=== PATIENT | male | born 1995 | race Caucasian/White ===

== ENCOUNTER → 2017-12-18 12:50 | Outpatient (CLI) | payer BC, OTHER, SELFPAY ==
--- NOTE | 2017-12-18 12:59 | CT_ITS ---
STUDY: CT TEMPORAL BONES WITHOUT CONTRAST - ATTN: I.A.C. S REASON FOR EXAM: Male, 22 years old. Hearing loss. RADIATION DOSAGE (If Supplied By Facility): CTDIvol = ( 67.58 ) mGy, DLP = ( 650.04 ) mGycm TECHNIQUE: The patient was scanned in a multi detector CT scanner. Transaxial imaging was performed without the administration of intravenous contrast material. Sagittal and coronal images were reconstructed. Individualized dose optimization techniques were used for this CT. COMPARISON: None. FINDINGS: RIGHT TEMPORAL BONE Normal right internal auditory canal. Normal visualized ossicles and tympanic cavity. Normal right cochlea and semicircular canals. Normal vestibular aqueduct. Normal right petrous carotid artery. Normal right jugular fossa. Normal right mastoid air cells. Normal right petrous apex. LEFT TEMPORAL BONE Normal left internal auditory canal. Normal visualized ossicles and tympanic cavity. Normal left cochlea and semicircular canals. Normal vestibular aqueduct. Normal left petrous carotid artery. Normal right jugular fossa. Normal left mastoid air cells. Normal left petrous apex. CT/Orb Sella Post Fossa Ear w/o IMPRESSION: Normal unenhanced CT examination of the bilateral temporal bones (I.A.C.'s). Electronically Signed: Dmitry Lima DO at 19:24 EDT Tel [phone], Service support ,
== END ==
PROVIDERS: Family Provider Family Medicine; PCP Family Medicine; Referring Provider Otolaryngology; Visit Provider Otolaryngology
DX: H90.2 Conductive hearing loss, unspecified (principal)
CPT/HCPCS: 70480

== ENCOUNTER 2018-01-30 05:26 | Day surgery (SDC) | payer BC, OTHER, SELFPAY ==
--- NOTE | 2018-01-25 10:56 | EKG12_ITS ---
Test Reason : PRE OP Blood Pressure : / mmHG Vent. Rate : 082 BPM Atrial Rate : 082 BPM P-R Int : 148 ms QRS Dur : 096 ms QT Int : 378 ms P-R-T Axes : 063 094 044 degrees QTc Int : 441 ms Normal sinus rhythm Rightward axis Borderline ECG Confirmed by JN TRUJILLO ([id number]), desk editor SID DURAN ([id number]) on 01/29/2018 2:35:07 PM Referred By: Tai Gutierrez Confirmed By:JN TRUJILLO
[2018-01-25 11:27] VITALS: BP 114/86; PULSE 66; RESP 18; TEMP 37.4; O2SAT 97; BMI 23.3
[2018-01-25 12:07] LABS: Anion Gap 6 (5-15); BUN 14 mg/dL (7-18); BUN/Creat Ratio 16.1 RATIO (10-20); Calcium,Total 9.4 mg/dL (8.5-10.1); Chloride 105 mmol/L (98-107); Creatinine, Serum 0.87 mg/dL (0.70-1.30); EST Glomerular Filtration Rate 117 mL/min (>60); Est Glom Filt Rate - Afr Amer 142 mL/min (>60); Estimated Creatinine Clearance 125.57 ml/min; Glucose 97 mg/dL (74-106); Potassium 3.9 mmol/L (3.5-5.1); Sodium Level 141 mmol/L (136-145)
[2018-01-30 05:44] VITALS: BP 118/70; PULSE 67; RESP 14; TEMP 36.6; O2SAT 100; BMI 23.3
[2018-01-30] MEDS: Ciprofloxacin 0.3% 2.5ml Bottle 1 DRP (08:15)
[2018-01-30] MEDS: Oxymetazoline 0.05% 1 SPRAY SPRAY.BTL 15 SPRAY (08:22)
[2018-01-30] MEDS: Neomycin/Bacitracin/Polymyxin Ointment 1 APPLIC (10:13)
[2018-01-30 10:35] VITALS: BP 111/79; BP 118/70; PULSE 73; RESP 16; TEMP 36.4; O2SAT 96
--- NOTE | 2018-01-30 10:36 | DCINST_ITS ---
You will use the following diet at home:: No restrictions Call your doctor if your incision/area has: Increased Pain/ Swelling Additional Dressing/Incision Instructions:: do not get water in your right ear for 1 month Allergies/Adverse Reactions: Allergies amoxicillin [From Augmentin] Adverse Reaction (Verified 01/25/18 11:22) Vomiting clavulanic acid [From Augmentin] Adverse Reaction (Verified 01/25/18 11:22) Vomiting Medications to take at Discharge Acetaminophen [Tylenol Extra Strength] 500 - 1,000 mg PO Q6H PRN PRN 01/25/18 Albuterol IH (ProAir) [Proair Hfa (SP)Vent Pts] 1 - 2 puff INHALATION Q4H PRN PRN 01/25/18 Amoxicillin 875 mg PO BID 01/25/18 Phenylephrine HCl [Sudafed PE] 10 mg PO DAILY PRN 01/25/18 Acetaminophen/Codeine #3 [Tylenol#3] 1 tab PO Q6H PRN PRN 5 Days #20 tab 01/30/18 Ciprofloxacin [Cipro] 500 mg PO BID #14 tab 01/30/18 The following prescriptions were given: Acetaminophen/Codeine #3 [Tylenol#3] 1 tab PO Q6H PRN PRN 5 Days #20 tab PRN Reason: Pain Ciprofloxacin [Cipro] 500 mg PO BID #14 tab Primary Care Physician: Marcellus Ham MD [Primary Care Provider] - Test Results: Test results from this visit will be discussed in further detail at your follow- up appointment, if applicable. Please Follow Up With: Tai Gutierrez MD When: 1 month
[2018-01-30 10:45] VITALS: BP 114/80; BP 118/70; PULSE 70; RESP 16; O2SAT 97
[2018-01-30 10:57] VITALS: BP 118/70; BP 130/86; PULSE 94; RESP 16; TEMP 36.2; O2SAT 100
[2018-01-30 12:09] VITALS: BP 118/70; BP 124/82; PULSE 88; RESP 16; TEMP 36.5; O2SAT 99
--- NOTE | 2018-01-30 16:22 | PCM.OPRPT ---
Problem List (1) Conductive hearing loss in right ear Status: Chronic Report of Operation Date of Procedure: 01/30/18 Pre-Operative Diagnosis: 1. conductive hearing loss, right ear Post-Operative Diagnosis: 1. conductive hearing loss, right ear Surgery/Procedure Performed:: 1. tympanoplasty with partial ossicular reconstruction, right ear. 2. fascia graft Type of Anesthesia:: General Description of Procedure: on the day of the procedure, after appropriate informed consent was obtained, the patient was brought to the operating room and placed in supine position on the operating table. he was placed under general endotracheal anesthesia by the anesthesiologist. the endotracheal tube was secured, the eyes were taped. the table was rotated 90 degrees toward the surgeon. the right ear was prepped and draped in sterile fashion. the ear canal and postauricular area was injected with lidocaine/epinephrine. a speculum was placed and the binocular operating microscope was used to evaluate the ear. a large round knife was used to make an incision 5mm lateral to the annulus. using a gimmick, the middle ear space was entered and the ossicles were examined. the malleus appeared normal. however, the articulation of the incus and stapes seemed to have a gap. the stapes was mobile when gently pressured. there were numerous adhesions that were lysed. at this time, given the patient had a maximal conductive loss and otherwise a normal CT scan, it was deemed necessary to remove the incus and place a PORP dornhoffer prosthesis. when the incus was removed and examined, it appeared to have necrosis of the distal end. a 1cm postauricular incision was made with a #15 blade and the temporalis fascia was exposed. a 1 x 1 cm graft was taken with a freer and iris scizzors. this was fascia-pressed and dried. the prosthesis was placed satisfactorily placed on the stapes suprastructure and leaned against the malleus. the fascia graft was placed over the prosthesis and the tympanic membrane was laid down in its usual position. the postauricular incision was closed with 4-0 vicryl and 5-0 fast gut. gelfoam was placed lateral to the tympanic membrane and bacitracin was placed in lateral to the TM. a cotton ball was placed. the patient was awoken from general endotracheal anesthesia and sent to the PACU in stable condition.
== END 2018-01-30 12:10 | disposition home or self-care (01) ==
LOC: SDC 05:26 → AC 05:27
PROVIDERS: Family Provider Family Medicine; PCP Family Medicine; Referring Provider Otolaryngology; Visit Provider Otolaryngology
PROC: (CPT 69632; principal; 2018-01-30 07:00)
DX: H90.11 Conductive hearing loss, unilateral, right ear, with unrestricted hearing on the contralateral side (principal); J45.909 Unspecified asthma, uncomplicated
CPT/HCPCS: 69632; 36415; 80048; 93005; J7120; J2405

== ENCOUNTER → 2018-11-23 11:40 | Outpatient (CLI) | payer BC, OTHER, SELFPAY ==
--- NOTE | 2018-11-23 11:45 | RAD_ITS ---
STUDY: X-RAY - THORACIC SPINE REASON FOR EXAM: Male, 23 years old. Back pain and surgery TECHNIQUE: 3 view(s) of the thoracic spine were obtained. COMPARISON: None. FINDINGS: There is posterior fusion with transpedicular screws and rods of the thoracic spine. There is no substantial scoliosis. Normal thoracic vertebrae and endplates. Normal disc space heights. The soft tissue structures are unremarkable. RAD/Thoracic Spine 3 Views IMPRESSION: Posterior fusion with transpedicular screws and rods of the thoracic spine. Electronically Signed: Eliud Pena, at 12:15 EDT Tel , Service support ,
== END ==
PROVIDERS: Family Provider Family Medicine; PCP Family Medicine; Referring Provider Family Medicine; Visit Provider Family Medicine
DX: M54.9 Dorsalgia, unspecified (principal)
CPT/HCPCS: 72072

== ENCOUNTER 2019-01-30 13:00 | Outpatient (RCR) | payer BC, OTHER, SELFPAY ==
--- NOTE | 2018-11-30 08:27 | HP.PTEVAL_ITS ---
Patient's Visit Information BEN TALBERT is a 23 year old M referred to Physical Therapy by Marcellus Ham MD with a diagnosis of LOW BACK PAIN. Date of Evaluation: 11/30/18 Physical Therapist: Paulie Estrella, PT, Cert MDT, OCS - Visit Plan Frequency: 2x /Week Duration: 4 Weeks Plan: PT INTERVENTIONS DLS,POSTURAL EX'S,LE FLEXABLITY ,STRENGTHENING,MODALTIES NEEDED - Subjective Findings: This 23 y/o male presents presnets to physical therapy with low back pain. Patient has LBP since childhood. Patient has had sciolios since childhood.Also had spinals fusion for scoliosis 6 years ago and 1st surgery 6 y ears olds.Patient location pain thoracic -lumbar stabbing sharp pain. Aggravating factors sitting, ,bending,lifting, standing. Allevating factors running ,walking. Patient symptoms affrcts sleeping. Patient denies parathesia/tingliong. Bowel/bladder -. Coughingsneezing -. Patient has no trauma. Patient symtoms affects ADLS and housework and school demnads. Patient symptoms affects QOL.Seen Dr did x-rays -. SOCAIL: College student. Single lives with parents - Pain Bilateral Buttocks Pain Intensity (Out of 10): 6 Pain Intensity Range: 10 Comment: T-L - Objective POSTURE: foward posture rounded shoulders ,right thoracic rotation scapular winged,left leg shorter than right. PALPATION: tender posterior spine region. NEURO: denies parathesia/tingling,reflexes L3-4,L4-5,L5-S1 2/3. SYMMTRIES: assymtries pelvis .left leg shorter. FLEXABLITY: hams severe tight. LUMBAR ROM: flexion flexion mod /severe loss,etension mod /severe loss,side glides mod loss. GAIT: reciprocal pattern scoliosis. MUSCULAR ENDURANCE : poor unable - Goals Goal 1:: Improve posture/body mechanics for ADL'S and sitting. Goal Time Frame: 4-6 Weeks Goal 2:: Independant with HEP Goal Time Frame: 4-6 Weeks Goal 3:: Patient to decrease thoracic and lumbar pain by 50% or> to improve function. Goal Time Frame: 4-6 Weeks Goal 4:: Patient to improve flexablity LE to improve function. Goal Time Frame: 4-6 Weeks Goal 5:: Patient to improve lumbar ROM for function of recovery Goal Time Frame: 4-6 Weeks Goal 6:: Patient to improve back owestry score 5 points> to improve QOL. Goal Time Frame: 4-6 Weeks - Rehabilitation Potential Physical Therapy Diagnosis: This patient has had 2 back surgeries due to scioliosis with pain,decrease lumbar ROM,decrease posture,tight hams and hips weak core thus benifit from skilled PT. Rehabilitation Potential: Good - Anticipated Interventions Patient/Client Instruction: Educate patient on: Condition, Plan of Care For the Purpose of:: To decrease pain, To increase ROM, To improve muscle performance and motor function, To increase tolerance to activity/condition/position, To improve ability of physical actions for home/community/work/leisure, To improve health of tissue, To decrease soft tissue restriction, To increase flexibility/ROM, To reduce risk of recurrence, To improve ability to perform tasks related to life management Therapeutic Exercise to Include: Strength training, Postural training, Flexibilty training, Dynamic Lumbar Stabilization Comment: BLE For the Purpose of:: To decrease pain, To increase ROM, To improve muscle performance and motor function, To increase tolerance to activity/condition/position, To improve performance and independence with ADL's, To improve ability of physical actions for home/community/work/leisure, To increase flexibility/ROM, To improve ability to perform tasks related to life management TENS: Yes IF ES: Yes Cryotherapy (ice pack, ice massage): Yes Thermo therapy (hot pack): Yes Ultrasound (thermal/non thermal): Yes For the Purpose of:: To decrease pain, To increase ROM, To improve nutrient delivery to tissue, To increase oxygenation perfusion, To improve ability of physical actions for home/community/work/leisure, To improve health of tissue, To decrease soft tissue restriction Thank you for the opportunity to evaluate your patient. For Medicare and Medicare HMO plans, please review the plan of care and approve it. It will need to be FAXED BACK to us at [phone] for Medicare purposes. For Medicare only, by signing this I certify the plan of care. Please let me know if there are questions or concerns regarding this plan of care. Physician Signature: Date:
--- NOTE | 2019-01-30 13:31 | HP.PTDCSUM ---
HP - PT D/C Summary It has been my pleasure to treat BEN TALBERT under orders from Marcellus Ham MD, for the diagnosis of LOW BACK PAIN for a total of 12 visit(s). Discharge Date: 01/30/19 Please see the following information for a summary of their discharge status. - Subjective Subjective: Doing well. Pain overall better Improve with daily function. - Pain Bilateral Buttocks Pain Intensity (Out of 10): 2 - Overall Improvement % Improvement: 90 - Objective Objective/Function: POSTURE: THORACIC KYPHOSIS ,SCOLISIS. GAIT: RECIPROCAL PATTERN. LUMBAR ROM: FLEXION MIN/MOD LOSS,EXTENSION MOD LOSS. MMT:QUADS/HAMS/HIP 4/5 - Goals Goal 1:: Improve posture/body mechanics for ADL'S and sitting. Goal Progress: Goal Met Goal 2:: Independant with HEP Goal Progress: Goal Met Goal 3:: Patient to decrease thoracic and lumbar pain by 50% or> to improve function. Goal Progress: Goal Met Goal 4:: Patient to improve flexablity LE to improve function. Goal Progress: Goal Met Goal 5:: Patient to improve lumbar ROM for function of recovery Goal Progress: Goal Met Goal 6:: Patient to improve back owestry score 5 points> to improve QOL. Goal Progress: Goal Met - Plan Plan: D/C TO HEP - D/C Information Discharge Comments: HEP If there are questions or concerns regarding this patient's physical therapy, please feel free to call me at [phone]. Thank you for the referral of this patient. Sincerely, Paulie Estrella, PT, Cert MDT, OCS
== END 2019-01-30 19:00 | disposition home or self-care (01) ==
LOC: PT 13:00
PROVIDERS: Family Provider Family Medicine; PCP Family Medicine; Referring Provider Family Medicine; Visit Provider Family Medicine
DX: M54.9 Dorsalgia, unspecified (principal)
CPT/HCPCS: 97110; 97162

== ENCOUNTER → 2019-12-23 16:46 | Outpatient (CLI) | payer BC, OTHER, SELFPAY ==
--- NOTE | 2019-12-23 16:49 | RAD_ITS ---
STUDY: X-RAY - RIGHT HAND REASON FOR EXAM: Pain and bruising of the third through fifth metacarpals after punching injury of the right hand 4 days ago. TECHNIQUE: 3 view(s) of the hand. COMPARISON: None. FINDINGS: Normal radiocarpal articulation. Normal distal radioulnar joint. Normal visualized carpal bones. Normal carpal articulations Normal carpometacarpal articulation of the thumb. Normal second through fifth carpometacarpal joints. There is chronic healed fracture deformity of the fifth metacarpal neck. Normal metacarpophalangeal joint of the thumb. Normal interphalangeal joint of the thumb. Normal proximal and distal phalanges of the thumb. Normal metacarpophalangeal joints of the second through fifth fingers. Normal proximal and distal interphalangeal joints of the second through fifth fingers. Normal phalanges of the second through fifth fingers. The soft tissue structures are unremarkable. RAD/Hand Min 3 Views IMPRESSION: Chronic healed fracture deformity of the fifth metacarpal. Electronically Signed: Jean Carlos Ham MD at 8:25 EDT Tel , Service support ,
== END ==
PROVIDERS: PCP Family Medicine; Referring Provider Family Medicine; Visit Provider Family Medicine
DX: M79.641 Pain in right hand (principal)
CPT/HCPCS: 73130

== ENCOUNTER → 2022-01-24 | Outpatient (CLI) | payer BC, OTHER, SELFPAY ==
--- NOTE | 2022-01-24 15:41 | RAD_ITS ---
STUDY: X-RAY - CERVICAL SPINE REASON FOR EXAM: Male, 26 years old. CERVICALGIA TECHNIQUE: 5 view(s) of the cervical spine were obtained. COMPARISON: None FINDINGS: There are degenerative changes of the anterior atlantoaxial articulation. Normal odontoid process. There is an exaggerated cervical lordosis. There is multi-level endplate spondylosis. Diffuse osteopenia/osteoporosis. Partial fusion of C5-C6. There is multi-level degenerative disc disease with multilevel disc space narrowing. Variable degrees of mild to moderate neural foraminal encroachment bilaterally. The soft tissue structures are unremarkable. There is no demonstrated fracture of the cervical spine. RAD/Cerv Spine 4 or 5 Views IMPRESSION: Osteopenia with multilevel degenerative disease as described. No distinct fracture or subluxation seen. Electronically Signed: Chelsi Smith MD at 3:25 EST ,
--- NOTE | 2022-01-24 15:41 | RAD_ITS ---
EXAM: XR CHEST, 2 VIEWS CLINICAL INDICATION: ASTHMA TECHNIQUE: Frontal and lateral views of the chest. This report was created using [employer] report generation technology. COMPARISON: None. FINDINGS: LUNGS AND PLEURAL SPACES: Unremarkable. No consolidation or edema. No pneumothorax. No effusion. HEART: Unremarkable. Cardiac silhouette not enlarged. MEDIASTINUM: Central airways and mediastinal contour are unremarkable. BONES/JOINTS: There is extensive hardware with pedicle screws and rods seen within the thoracic spine. SOFT TISSUES: Unremarkable. RAD/Chest PA and Lateral IMPRESSION: No acute findings in the chest. Electronically Signed: Jarred Tavares MD at 16:24 EST ,
[2022-01-24 18:05] LABS: Vitamin D,25 Hydroxy 42.5 ng/mL
[2022-01-24 18:06] LABS: Absolute Neutrophil Count 2.9 X10^3/uL (2.0-7.7); Basophil# 0.06 X10^3/uL; Basophil% 0.9 % (0-1); Eosinophil# 0.17 X10^3/uL; Eosinophils% 2.5 % (0-5); Hematocrit 45.7 % (40-54); Hemoglobin 15.5 g/dL (13.0-16.5); Lymphocyte % 41.9 % (19-41); Mean Corp Hgb Conc 33.9 g/dL (32-36); Mean Corpuscular Hgb 30.8 pg (27.0-32.0); Mean Corpuscular Volume 90.9 fL (80-94); Mean Platelet Vol. 10.9 fl (6.2-12.0); Monocyte# 0.72 X10^3/uL; Monocyte% 10.8 % (0-10); NRBC Flagged by Analyzer 0 % (0-5); Neutrophil # 2.93 X10^3/uL (2.7-7.7); Neutrophil % 43.8 % (47-70); Platelet Count 249 K/mm3 (150-450); RBC Distribution Width CV 12.4 % (11.6-14.6); RBC Distribution Width SD 40.8 fl (35.1-43.9); Red Blood Count 5.03 M/mm3 (4.6-6.2); White Blood Count 6.7 K/mm3 (4.4-11.0)
[2022-01-24 18:10] LABS: ALB/GLOB Ratio 1.3 RATIO (0.9-2.4); AST(SGOT) 32 U/L (15-37); Alanine Aminotransfer ALT/SGPT 27 U/L (16-61); Albumin, Serum 4.4 g/dL (3.2-5.0); Alkaline Phosphatase 83 U/L (45-117); Anion Gap 8 (5-15); BUN 11 mg/dL (7-18); BUN/Creat Ratio 11.5 RATIO (10-20); Calcium,Total 8.9 mg/dL (8.5-10.1); Chloride 100 mmol/L (98-107); Creatinine, Serum 0.96 mg/dL (0.70-1.30); EST Glomerular Filtration Rate 102 mL/min (>60); Est Glom Filt Rate - Afr Amer 123 mL/min (>60); Globulin 3.5 g/dL (2.2-4.2); Glucose 88 mg/dL (74-106); Protein, Total 7.9 g/dL (6.4-8.2); Sodium Level 137 mmol/L (136-145); Thyroid Stim Hormone (TSH) 1.36 uIU/mL (0.358-3.74)
[2022-01-24 18:35] LABS: Erythrocyte Sedimentation Rate 3 mm/hr (0-20)
== END | disposition home or self-care (01) ==
PROVIDERS: PCP Family Medicine; Visit Provider Family Medicine
DX: R53.83 Other fatigue (principal); M54.2 Cervicalgia; J45.909 Unspecified asthma, uncomplicated
CPT/HCPCS: 36415; 71046; 72050; 80053; 82306; 84443; 85025; 85652

== ENCOUNTER → 2022-03-02 | Outpatient (CLI) | payer BC, OTHER, SELFPAY ==
--- NOTE | 2022-03-02 15:20 | MRI_ITS ---
INDICATION: N/T LUE EXAMINATION: MRI - MR Spine Cervical W/O Contrast TECHNIQUE: Multiplanar and multisequence MR images of the cervical spine were performed. IV Contrast Dosage and Agent: None. COMPARISON: None. FINDINGS: VERTEBRAE: No acute fracture or pathologic marrow replacement. Partial fusion of C5-C6. Hardware artifact from thoracic fusion hardware. VERTEBRAL ALIGNMENT: Normal, including the craniocervical junction and cervicothoracic junction. No spondylolisthesis. Significant scoliosis with exaggerated cervical lordosis. CERVICAL SPINAL CORD: Unremarkable in signal and morphology. C2/C3: Normal disc height and morphology. Normal spinal canal and neuroforamina. C3/C4: Mild loss of normal disc space height. Right-sided spondylitic bar formation produces moderate right foraminal stenosis. No central or left foraminal stenosis. C4/C5: Mild loss of normal disc space height. Right-sided spondylitic changes produce right foraminal stenosis. No central or left foraminal narrowing. C5/C6: Partial fusion. Normal spinal canal and neuroforamina. C6/C7: Normal disc height and morphology. Normal spinal canal and neuroforamina. C7/T1: Normal disc height and morphology. Normal spinal canal and neuroforamina. NECK SOFT TISSUES: No prevertebral soft tissue swelling. MRI/Spine Cervical (Routine) IMPRESSION: Cervical spondylosis with right-sided foraminal stenosis C3-4 and C4-5. Partial fusion C5-C6. Scoliosis with exaggerated cervical lordosis. Electronically Signed: Ney Brown MD at 0:13 EST ,
== END | disposition home or self-care (01) ==
LOC: MRI 14:51
PROVIDERS: PCP Family Medicine; Referring Provider Family Medicine; Visit Provider Family Medicine
DX: M41.82 Other forms of scoliosis, cervical region (principal); M48.02 Spinal stenosis, cervical region; M47.812 Spondylosis without myelopathy or radiculopathy, cervical region; R20.0 Anesthesia of skin; R20.2 Paresthesia of skin
CPT/HCPCS: 72141

== ENCOUNTER → 2022-05-09 | Outpatient (CLI) | payer BC, OTHER, SELFPAY ==
--- NOTE | 2022-05-09 15:30 | NEURO ---
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 Left arm weakness. History of Klippel-Feil syndrome. History of cervical spondylosis status post surgery. Findings: Nerve conduction studies were performed in the right and left upper extremity. The right median motor study recording the abductor pollicis brevis showed a normal amplitude, normal distal latency and normal conduction velocity. The right ulnar motor study recording the abductor digiti minimi showed a normal amplitude, normal distal latency and normal conduction velocity. No conduction block or focal slowing was present across the elbow. The right median sensory response recording digit two showed a normal amplitude, latency and conduction velocity. The right ulnar sensory response recording digit five showed a normal amplitude, latency and conduction velocity. The right radial sensory response recording over the extensor snuff box showed a normal amplitude, latency and conduction velocity. As the sensory symptoms of a C6-7 radiculopathy are similar to those of median entrapment at the wrist, additional internal comparison studies were done to help exclude a possible median neuropathy at the wrist. Right median-ulnar lumbrical / interosseous motor latencies showed no significant difference. The left median motor study recording the abductor pollicis brevis showed a normal amplitude, normal distal latency and normal conduction velocity. The left ulnar motor study recording the abductor digiti minimi showed a normal amplitude, normal distal latency and normal conduction velocity. No conduction block or focal slowing was present across the elbow. Left median minimal F wave latencies were normal. Left ulnar minimal F wave latencies were normal. The median minimum F wave latency was not prolonged compared to the ulnar. The left median sensory response recording digit two showed a normal amplitude, latency and conduction velocity. The left ulnar sensory response recording digit five showed a normal amplitude, latency and conduction velocity. The left radial sensory response recording over the extensor snuff box showed a normal amplitude, latency and conduction velocity. Left median ulnar lumbrical / interosseous motor latencies showed no significant difference. Needle EMG of the right upper extremity muscles was performed. No denervation was seen in any muscle. All motor unit morphology, activation and recruitment patterns were normal. Needle EMG of the left upper extremity muscles was performed. No denervation was seen in any muscle. All motor unit morphology, activation and recruitment patterns were normal. The cervical paraspinal muscles were not sampled due to the patient's history of prior posterior approach neck surgery. Impression: This is a normal study. There is no electrophysiologic evidence of cervical radiculopathy in either the right or left upper extremity. In addition, there was no electrophysiologic evidence of median or ulnar entrapment neuropathy, or brachial plexopathy in either upper extremity. Please note: the electrodiagnosis of radiculopathy is made on the basis of excluding peripheral nerve lesions on nerve conduction studies and the needle EMG demonstrating denervation and/or reinnervation in the distribution of one or more nerve roots (i.e., acute and/or chronic axonal loss). Thus, electrodiagnostic studies are insensitive in detecting radiculopathy in the absence of axonal loss (e.g., in the setting of compression resulting in intermittent ischemia or mechanical deformation; or demyelination without axonal loss). Thus, clinical correlation is required in the interpretation of this negative electrodiagnostic study for radiculopathy. Jose A Roque D.O. Multi Select Codes Neurology Neurology Interp Codes: 23008-08 Musc tst done w/nerv tst william (interp) (59), 03423-47 Musc test done w/n test comp (interp) and 91010-76 Nrv cndj test 13/> studies (interp)
== END | disposition home or self-care (01) ==
PROVIDERS: PCP Family Medicine; Referring Provider Family Medicine; Visit Provider Family Medicine
DX: R20.0 Anesthesia of skin (principal); R20.2 Paresthesia of skin
CPT/HCPCS: 95885; 95886; 95912